=== PATIENT | male | born 1965 | race Caucasian/White ===

== ENCOUNTER 2019-05-23 08:57 | Inpatient (IN) | payer OTHER ==
[2019-05-23 09:58] VITALS: BMI 29.9
--- NOTE | 2019-05-23 10:46 | HP ---
CIWA Score Nausea/Vomitin-No Nausea/No Vomiting Muscle Tremors: 1-None Visible, but [place] Anxiety: 4-Mod. Anxious/Guarded Agitation: 3 Paroxysmal Sweats: 2 Orientation: 0-Oriented Tacttile Disturbances: 0-None Auditory Disturbances: 0-None Visual Disturbances: 0-None Headache: 2-Mild CIWA-Ar Total Score: 12 - Admission Criteria OASAS Guidelines: Admission for Medically Managed Detox: Requires at least one of the followin. CIWA greater than 12 2. Seizures within the past 24 hours 3. Delirium tremens within the past 24 hours 4. Hallucinations within the past 24 hours 5. Acute intervention needed for co occurring medical disorder 6. Acute intervention needed for co occurring psychiatric disorder 7. Severe withdrawal that cannot be handled at a lower level of care (continued vomiting, continued diarrhea, abnormal vital signs) requiring intravenous medication and/or fluids 8. Admission ROS [facility] - [facility] Chief Complaint: ETOH withdrawal symptoms Allergies/Adverse Reactions: Allergies Allergy/AdvReac Type Severity Reaction Status Date / Time Fish Containing Products Allergy Intermediate Rash Verified 01/22/14 16:55 No Known Drug Allergies Allergy Verified 01/22/14 15:03 History of Present Illness: Patient presents with ETOH withdrawal symptoms. Patient is known to [facility] due to previous admissions with last admission in 2013. Patient states he was admitted to detox at [facility] 3-4 weeks ago but relapsed day after discharge. Patient states he started drinking at age 13, drinks all day and night 12-16 oz of beer and 4 locos daily, +binge drinking, eye openers and black outs. Denies hx of seizures, use of cocaine, marijuana and heroin. Patient's last drink was early this morning. PMH includes tobacco use, anxiety and depression. Patient denies SI/HI. Compliant with psych meds which he bought with him. Fluoxetine 20mg daily Buspar 15mg bid Urine tox + bzo RC 0.0 Exam Limitations: No Limitations - Ebola screening Have you traveled outside of the country in the last 21 days: No (N) Have you had contact with anyone from an Ebola affected area: No Have you been sick,other than usual withdrawal symptoms: No Do you have a fever: No - Review of Systems Constitutional: Night Sweats, Changes in sleep EENT: reports: No Symptoms Reported Respiratory: reports: Cough (dry cough) Cardiac: reports: No Symptoms Reported GI: reports: Poor Fluid Intake : reports: Frequency (due to ETOH intake) Musculoskeletal: reports: No Symptoms Reported Integumentary: reports: Flushing, Sweating Neuro: reports: Headache, Tremors Endocrine: reports: [place] Hematology: reports: No Symptoms Reported Psychiatric: reports: Orientated x3, Anxious Patient History - Patient Medical History Hx Anemia: No Hx Asthma: No Hx Chronic Obstructive Pulmonary Disease (COPD): No Hx Cancer: No Hx Cardiac Disorders: No Hx Congestive Heart Failure: No Hx Hypertension: No Hx Hypercholesterolemia: No Hx Pacemaker: No HX Cerebrovascular Accident: No Hx Seizures: No Hx Dementia: No Hx Diabetes: No Hx Gastrointestinal Disorders: No Hx Liver Disease: No Hx Genitourinary Disorders: No Hx Sexually Transmitted Disorders: No Hx Renal Disease (ESRD): No Hx Thyroid Disease: No Hx Human Immunodeficiency Virus (HIV): No (negative 6 months ago.) Hx Hepatitis C: No Hx Depression: Yes Hx Suicide Attempt: No Hx Bipolar Disorder: No Hx Schizophrenia: No Other Medical History: anxiety - Patient Surgical History Past Surgical History: Yes Hx Neurologic Surgery: No Hx Cataract Extraction: No Hx Cardiac Surgery: No Hx Lung Surgery: No Hx Breast Surgery: No Hx Breast Biopsy: No Hx Abdominal Surgery: No Hx Appendectomy: No Hx Cholecystectomy: No Hx Genitourinary Surgery: No Hx Orthopedic Surgery: No Other Surgical History: right lense placement Anesthesia Reaction: No - PPD History Previous Implant?: Yes Documented Results: Negative w/proof Date: 01/24/14 Results: 0 mm PPD to be Administered?: No - Smoking Cessation Smoking history: Current every day smoker Have you smoked in the past 12 months: Yes Aproximately how many cigarettes per day: 25 Cigars Per Day: 0 Hx Chewing Tobacco Use: No Initiated information on smoking cessation: Yes 'Breaking Loose' booklet given: 05/23/19 - Substance & Tx. History Hx Alcohol Use: Yes Hx Substance Use: No Substance Use Type: Alcohol - Substances abused Alcohol Substance route: Oral Frequency: Daily Amount used: 12 (16 OUNCES ) BEER AND, 4 CANS OF LOGOS Age of first use: 14 Date of last use: 05/23/19 Family Disease History - Family Disease History Family Disease History: Other: Father ( [place]) Admission Physical Exam BHS - Vital Signs Vital Signs: Vital Signs - 24 hr 05/23/19 09:52 Temperature 97.3 F L Pulse Rate 97 H Respiratory 18 Rate Blood Pressure 167/92 - Physical General Appearance: Yes: Nourished, Appropriately Dressed, Tremorous, Sweating, Anxious HEENTM: Yes: EOMI, Hearing grossly Normal, Normal ENT Inspection, Normocephalic , Normal Voice, [place], Pharynx Normal Respiratory: Yes: Chest Non-Tender, Lungs Clear, Normal Breath Sounds, No Respiratory Distress, No Accessory Muscle Use Neck: Yes: No masses,lesions,Nodules, Supple, Trachea in good position Breast: Yes: Breast Exam Deferred Cardiology: Yes: Regular Rhythm, Regular Rate, S1, S2, Edema (trace pedal edema) Abdominal: Yes: Normal Bowel Sounds, Non Tender, Soft Genitourinary: Yes: Frequency Back: Yes: Normal Inspection Musculoskeletal: Yes: full range of Motion, Gait Steady Extremities: Yes: Normal Inspection, Normal Range of Motion, Non-Tender, Tremors Neurological: Yes: director of recreation therapy II-XII NML intact, Fully Oriented, Alert, Motor Strength 5/5, Normal Response, Other (anxious) Integumentary: Yes: Warm, Erythema, Moist Lymphatic: Yes: Within Normal Limits - Diagnostic (1) Alcohol dependence with uncomplicated withdrawal Current Visit: Yes Status: Acute (2) Anxiety Current Visit: Yes Status: Chronic (3) Nicotine dependence Current Visit: No Status: Chronic Cleared for Admission [facility] - Detox or Rehab [facility] Level of Care: Medically Managed Detox Regimen/Protocol: Librium Breathalyzer - Breathalyzer Breathalyzer: 0 Urine Drug Screen - Results Drug screen NEGATIVE: No Urine drug screen results: BZO-Benzodiazepines Inpatient Rehab Admission - Rehab Decision to Admit Inpatient rehab admission?: No
[2019-05-23] MEDS ORDERED: NICOTINE POLACRILEX 2 MG GUM BUC PRN (10:51)
[2019-05-23] MEDS ORDERED: guaiFENesin 200 MG/10 ML 10 ML UNIT-DOSE CUPS PO PRN (10:51)
[2019-05-23] MEDS ORDERED: IBUPROFEN 400 MG TABLET (FP) PO PRN (10:51)
[2019-05-23] MEDS ORDERED: MAGNESIUM CITRATE 300 ML BOTTLE PO PRN (10:51)
[2019-05-23] MEDS ORDERED: hydrOXYzine PAMOATE 25 MG CAPSULE (FP) PO PRN (10:51)
[2019-05-23] MEDS ORDERED: ONDANSETRON *ODT* 4 MG TABLET SL PRN (10:51)
[2019-05-23] MEDS ORDERED: MENTHOL/PHENOL 1 EACH UD MM PRN (10:51)
[2019-05-23] MEDS ORDERED: BISMUTH SUBSALICYLATE 262 MG/15 ML BTL PO PRN (10:51)
[2019-05-23] MEDS ORDERED: ACETAMINOPHEN 325 MG TABLET (FP) PO PRN ×2 (10:51)
[2019-05-23] MEDS ORDERED: MAGNESIUM HYDROX 2400MG/30ML ORAL SUSPENSION 30 ML CUP PO PRN (10:51)
[2019-05-23] MEDS ORDERED: chlordiazePOXIDE HCL 25 MG CAPSULE PO PRN (10:55)
--- NOTE | 2019-05-23 11:47 | EKG ---
Test Reason : Blood Pressure : / mmHG Vent. Rate : 089 BPM Atrial Rate : 089 BPM P-R Int : 136 ms QRS Dur : 096 ms QT Int : 354 ms P-R-T Axes : 000 068 027 degrees QTc Int : 430 ms NORMAL SINUS RHYTHM NORMAL ECG NO PREVIOUS ECGS AVAILABLE Confirmed by JOSSE HEAD MD ([id number]) on 05/23/2019 11:46:38 AM Referred By: Confirmed By:JOSSE HEAD MD
[2019-05-23] MEDS: chlordiazePOXIDE HCL 25 MG CAPSULE PO SCH ×3 (12:23→22:11)
[2019-05-23] MEDS: BUSPIRONE HCL 10 MG, BUSPIRONE HCL 5 MG PO SCH ×2 (14:34→22:12)
[2019-05-23 14:52] LABS: HEMATOCRIT 40.1 % (35.4-49); HEMOGLOBIN 13.6 GM/dL (11.7-16.9); MCH 31.5 pg (25.7-33.7); MCHC 33.9 g/dl (32.0-35.9); MEAN PLT VOLUME 8.3 fl (7.5-11.1); PLATELET COUNT 229 K/MM3 (134-434); RBC 4.32 M/mm3 (4.00-5.60); RDW 16.7 % (11.9-15.9); WHITE BLOOD COUNT 9.3 K/mm3 (4.0-10.0)
[2019-05-23 15:09] LABS: ALBUMIN 3.4 g/dl (3.4-5.0); BILIRUBIN,TOTAL 0.4 mg/dL (0.2-1); BLOOD UREA NITROGEN 9.4 mg/dL (7-18); CALCIUM 9.2 mg/dL (8.5-10.1); CREATININE 0.9 mg/dL (0.55-1.3); POTASSIUM 4.2 mmol/L (3.5-5.1); TOT PROT 7.6 g/dl (6.4-8.2)
[2019-05-23] MEDS: THIAMINE HCL 100 MG TABLET (FP) PO SCH (22:12)
[2019-05-24] MEDS: chlordiazePOXIDE HCL 25 MG CAPSULE PO SCH ×4 (05:11→21:59)
[2019-05-24] MEDS: NICOTINE 21 MG/24 HOURS TOPICAL PATCH TD SCH (10:37)
[2019-05-24] MEDS: PRENATAL VITAMINS W/ FOLIC ACID TABLET (FP) PO SCH (10:38)
[2019-05-24] MEDS: FLUoxetine HCL 20 MG CAPSULE (FP) PO SCH (10:38)
[2019-05-24] MEDS: BUSPIRONE HCL 10 MG, BUSPIRONE HCL 5 MG PO SCH ×2 (10:40→22:00)
--- NOTE | 2019-05-24 15:33 | PN ---
S CIWA - CIWA Score Nausea/Vomitin-No Nausea/No Vomiting Muscle Tremors: 2 Anxiety: 4-Mod. Anxious/Guarded Agitation: 2 Paroxysmal Sweats: 3 (And Alternating Hot / Cold Sesnsations.) Orientation: 0-Oriented Tacttile Disturbances: 0-None Auditory Disturbances: 0-None Visual Disturbances: 2-Mild Sensitivity Headache: 0-None Present CIWA-Ar Total Score: 13 BHS Progress Note (SOAP) Subjective: Anxious, Fatigue, Sweating, Tremors, Alternating Hot / Cold Sensations. Objective: PATIENT A & O X 3. IN NO ACUTE DISTRESS. 05/24/19 15:33 Vital Signs Temperature 98.8 F 05/24/19 13:05 Pulse Rate 89 05/24/19 13:05 Respiratory Rate 18 05/24/19 13:05 Blood Pressure 115/65 05/24/19 13:05 O2 Sat by Pulse Oximetry (%) Laboratory Tests 05/23/19 05/23/19 05/23/19 10:50 10:50 10:50 WBC 9.3 RBC 4.32 Hgb 13.6 Hct 40.1 MCV 93.0 MCH 31.5 MCHC 33.9 RDW 16.7 H Plt Count 229 D MPV 8.3 Sodium 141 Potassium 4.2 Chloride 106 Carbon Dioxide 27 Anion Gap 8 BUN 9.4 Creatinine 0.9 Est GFR (CKD-EPI)AfAm 110.27 Est GFR (CKD-EPI)NonAf 95.14 Random Glucose 99 Calcium 9.2 Total Bilirubin 0.4 AST 12 L ALT 19 Alkaline Phosphatase 120 H Total Protein 7.6 Albumin 3.4 RPR Titer Nonreactive LABS NOTED. RESULTS OF DETOX ADMISSION QFT /TB TEST PENDING. 05/24/19 15:34 Assessment: 05/24/19 15:34 WITHDRAWAL SYMPTOMS. Plan: CONTINUE DETOX.
[2019-05-24] MEDS: THIAMINE HCL 100 MG TABLET (FP) PO SCH (21:58)
[2019-05-24] MEDS: MELATONIN 5 MG TABLETS PO PRN (22:01)
[2019-05-25] MEDS: chlordiazePOXIDE HCL 25 MG CAPSULE PO SCH ×4 (05:21→22:02)
[2019-05-25] MEDS: NICOTINE 21 MG/24 HOURS TOPICAL PATCH TD SCH (10:29)
[2019-05-25] MEDS: FLUoxetine HCL 20 MG CAPSULE (FP) PO SCH (10:29)
[2019-05-25] MEDS: BUSPIRONE HCL 10 MG, BUSPIRONE HCL 5 MG PO SCH ×2 (10:29→22:02)
[2019-05-25] MEDS: PRENATAL VITAMINS W/ FOLIC ACID TABLET (FP) PO SCH (10:29)
[2019-05-25] MEDS: MAG HYDROX/AL HYDROX/SIMETH 30 ML UNIT-DOSE CUP PO PRN (10:31)
--- NOTE | 2019-05-25 12:50 | PN ---
[facility] CIWA - CIWA Score Nausea/Vomitin-No Nausea/No Vomiting Muscle Tremors: 3 Anxiety: 3 Agitation: 2 Paroxysmal Sweats: 2 Orientation: 0-Oriented Tacttile Disturbances: 1-Very Mild Itch/Numbness Auditory Disturbances: 0-None Visual Disturbances: 1-Very Mild Sensitivity Headache: 0-None Present CIWA-Ar Total Score: 12 S Progress Note (SOAP) Subjective: 54 years old male admitted on 05/23/19 for acute alcohol withdrawal sx management doing well with librium detox regimen feeling better ambulating on hallway tolerate food and fluid well social with peer in day room Objective: 05/25/19 12:49 Vital Signs Temperature 96.1 F L 05/25/19 09:14 Pulse Rate 97 H 05/25/19 09:14 Respiratory Rate 18 05/25/19 09:14 Blood Pressure 116/87 05/25/19 09:14 O2 Sat by Pulse Oximetry (%) Laboratory Last Values WBC 9.3 K/mm3 (4.0-10.0) 05/23/19 10:50 RBC 4.32 M/mm3 (4.00-5.60) 05/23/19 10:50 Hgb 13.6 GM/dL (11.7-16.9) 05/23/19 10:50 Hct 40.1 % (35.4-49) 05/23/19 10:50 MCV 93.0 fl (80-96) 05/23/19 10:50 MCH 31.5 pg (25.7-33.7) 05/23/19 10:50 MCHC 33.9 g/dl (32.0-35.9) 05/23/19 10:50 RDW 16.7 % (11.9-15.9) H 05/23/19 10:50 Plt Count 229 K/MM3 (134-434) D 05/23/19 10:50 MPV 8.3 fl (7.5-11.1) 05/23/19 10:50 Sodium 141 mmol/L (136-145) 05/23/19 10:50 Potassium 4.2 mmol/L (3.5-5.1) 05/23/19 10:50 Chloride 106 mmol/L (98-107) 05/23/19 10:50 Carbon Dioxide 27 mmol/L (21-32) 05/23/19 10:50 Anion Gap 8 MMOL/L (8-16) 05/23/19 10:50 BUN 9.4 mg/dL (7-18) 05/23/19 10:50 Creatinine 0.9 mg/dL (0.55-1.3) 05/23/19 10:50 Est GFR (CKD-EPI)AfAm 110.27 05/23/19 10:50 Est GFR (CKD-EPI)NonAf 95.14 05/23/19 10:50 Random Glucose 99 mg/dL (74-106) 05/23/19 10:50 Calcium 9.2 mg/dL (8.5-10.1) 05/23/19 10:50 Total Bilirubin 0.4 mg/dL (0.2-1) 05/23/19 10:50 AST 12 U/L (15-37) L 05/23/19 10:50 ALT 19 U/L (13-61) 05/23/19 10:50 Alkaline Phosphatase 120 U/L (45-117) H 05/23/19 10:50 Total Protein 7.6 g/dl (6.4-8.2) 05/23/19 10:50 Albumin 3.4 g/dl (3.4-5.0) 05/23/19 10:50 RPR Titer Nonreactive (NONREACTIVE) 05/23/19 10:50 lab noted Assessment: 05/25/19 12:50 alcohol withdrawal sx Plan: continue lirium detox regimen
[2019-05-25] MEDS: HYDROCORTISONE 1% TOPICAL CREAM 30 GM TUBE TP SCH ×2 (18:34→22:02)
[2019-05-25] MEDS: MELATONIN 5 MG TABLETS PO PRN (22:02)
[2019-05-25] MEDS: THIAMINE HCL 100 MG TABLET (FP) PO SCH (22:02)
[2019-05-26] MEDS ORDERED: chlordiazePOXIDE HCL 10 MG CAPSULE PO PRN
[2019-05-26] MEDS: chlordiazePOXIDE HCL 10 MG CAPSULE PO SCH ×4 (05:16→22:13)
[2019-05-26] MEDS: PRENATAL VITAMINS W/ FOLIC ACID TABLET (FP) PO SCH (10:16)
[2019-05-26] MEDS: BUSPIRONE HCL 10 MG, BUSPIRONE HCL 5 MG PO SCH ×2 (10:16→22:14)
[2019-05-26] MEDS: FLUoxetine HCL 20 MG CAPSULE (FP) PO SCH (10:16)
[2019-05-26] MEDS: NICOTINE 21 MG/24 HOURS TOPICAL PATCH TD SCH (10:17)
[2019-05-26] MEDS: HYDROCORTISONE 1% TOPICAL CREAM 30 GM TUBE TP SCH ×4 (10:17→22:14)
--- NOTE | 2019-05-26 13:47 | PN ---
[facility] CIWA - CIWA Score Nausea/Vomitin-Mild Nausea/No Vomiting Muscle Tremors: 2 Anxiety: 1-Mildly Anxious Agitation: 1-Slight > Activity Paroxysmal Sweats: 1-Minimal Palms Moist Orientation: 0-Oriented Tacttile Disturbances: 0-None Auditory Disturbances: 0-None Visual Disturbances: 0-None Headache: 1-Very Mild CIWA-Ar Total Score: 7 BHS Progress Note (SOAP) Subjective: pt complaints of back pain, says detox is going well. O: Vital Signs - 24 hr 05/25/19 05/25/19 05/26/19 17:44 21:46 00:30 Temperature 96.9 F L 97.5 F L Pulse Rate 86 97 H Respiratory 18 16 18 Rate Blood Pressure 127/84 124/77 05/26/19 05/26/19 05/26/19 03:30 06:19 06:30 Temperature 97.7 F Pulse Rate 76 Respiratory 18 18 18 Rate Blood Pressure 129/75 05/26/19 05/26/19 09:24 13:45 Temperature 98.1 F 97.2 F L Pulse Rate 88 79 Respiratory 16 18 Rate Blood Pressure 140/95 124/83 Laboratory Tests 05/23/19 05/23/19 05/23/19 10:50 10:50 10:50 WBC 9.3 RBC 4.32 Hgb 13.6 Hct 40.1 MCV 93.0 MCH 31.5 MCHC 33.9 RDW 16.7 H Plt Count 229 D MPV 8.3 Sodium 141 Potassium 4.2 Chloride 106 Carbon Dioxide 27 Anion Gap 8 BUN 9.4 Creatinine 0.9 Est GFR (CKD-EPI)AfAm 110.27 Est GFR (CKD-EPI)NonAf 95.14 Random Glucose 99 Calcium 9.2 Total Bilirubin 0.4 AST 12 L ALT 19 Alkaline Phosphatase 120 H Total Protein 7.6 Albumin 3.4 RPR Titer Nonreactive a/p: continue alcohol detox protocol prn meds for back pain
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
[2019-05-26] MEDS: traZODone HCL 50 MG TABLET (FP) PO PRN (22:13)
[2019-05-26] MEDS: THIAMINE HCL 100 MG TABLET (FP) PO SCH (22:13)
[2019-05-26] MEDS: CLOTRIMAZOLE 1% CREAM 15 GM TUBE TP SCH (22:14)
[2019-05-27] MEDS: chlordiazePOXIDE HCL 10 MG CAPSULE PO SCH ×2 (06:16→16:59)
[2019-05-27] MEDS: FLUoxetine HCL 20 MG CAPSULE (FP) PO SCH (10:17)
[2019-05-27] MEDS: NICOTINE 21 MG/24 HOURS TOPICAL PATCH TD SCH (10:17)
[2019-05-27] MEDS: PRENATAL VITAMINS W/ FOLIC ACID TABLET (FP) PO SCH (10:17)
[2019-05-27] MEDS: HYDROCORTISONE 1% TOPICAL CREAM 30 GM TUBE TP SCH ×4 (10:17→21:42)
[2019-05-27] MEDS: CLOTRIMAZOLE 1% CREAM 15 GM TUBE TP SCH ×2 (10:18→21:42)
[2019-05-27] MEDS: BUSPIRONE HCL 10 MG, BUSPIRONE HCL 5 MG PO SCH ×2 (10:18→22:01)
--- NOTE | 2019-05-27 13:53 | PN ---
S CIWA - CIWA Score Nausea/Vomitin Muscle Tremors: 2 Anxiety: 2 Agitation: 2 Paroxysmal Sweats: 1-Minimal Palms Moist Orientation: 0-Oriented Tacttile Disturbances: 0-None Auditory Disturbances: 0-None Visual Disturbances: 0-None Headache: 2-Mild CIWA-Ar Total Score: 11 S Progress Note (SOAP) Subjective: alert,irritable,anxious,interrupted sleep, Objective: 05/27/19 13:52 Vital Signs Temperature 97.7 F 05/27/19 13:12 Pulse Rate 83 05/27/19 13:12 Respiratory Rate 18 05/27/19 13:12 Blood Pressure 128/86 05/27/19 13:12 O2 Sat by Pulse Oximetry (%) Assessment: 05/27/19 13:52 withdrawal symptom Plan: continue detox librium regimen,discharge in am
[2019-05-27] MEDS: MAG HYDROX/AL HYDROX/SIMETH 30 ML UNIT-DOSE CUP PO PRN (17:00)
[2019-05-27] MEDS: traZODone HCL 50 MG TABLET (FP) PO PRN (21:40)
[2019-05-27] MEDS: THIAMINE HCL 100 MG TABLET (FP) PO SCH (21:40)
[2019-05-27 23:12] LABS: URINE APPEARANCE CLEAR; URINE BILIRUBIN NEGATIVE (NEGATIVE); URINE COLOR YELLOW; URINE GLUCOSE (UA) NEGATIVE (NEGATIVE); URINE KETONE NEGATIVE (NEGATIVE); URINE LEUK ESTERASE NEGATIVE (NEGATIVE); URINE NITRITE NEGATIVE (NEGATIVE); URINE PROTEIN NEGATIVE (NEGATIVE); URINE UROBILINOGEN 0.2 mg/dL (0.2-1.0)
[2019-05-28] MEDS ORDERED: chlordiazePOXIDE HCL 10 MG CAPSULE PO ONE (05:00)
[2019-05-28 06:22] VITALS: BP 133/85; PULSE 77; TEMP 97.6
[2019-05-28] MEDS: CLOTRIMAZOLE 1% CREAM 15 GM TUBE TP SCH (09:29)
[2019-05-28] MEDS: HYDROCORTISONE 1% TOPICAL CREAM 30 GM TUBE TP SCH (09:29)
[2019-05-28] MEDS: NICOTINE 21 MG/24 HOURS TOPICAL PATCH TD SCH (09:29)
[2019-05-28] MEDS: PRENATAL VITAMINS W/ FOLIC ACID TABLET (FP) PO SCH (09:30)
[2019-05-28] MEDS: FLUoxetine HCL 20 MG CAPSULE (FP) PO SCH (09:30)
--- NOTE | 2019-05-28 13:44 | DS ---
[facility] Detox Discharge Summary Admission Date: 05/23/19 Discharge Date: 05/28/19 - History Present History: Alcohol Dependence Additional Comments: 54 years old male first patient [facility] admission since 2013 was admitted on 05/23/19 for alcohol withdrawal sx management did well with libirum detox regimen no complication through out the detox stay seen by psychiatrist meghan garcia patient tolerate well patient is alert oriented x 3 speech clearly denies headache no chest pain no wheezing denies dizziness no nausea no vomiting - Physical Exam Results Vital Signs: Vital Signs Temperature 97.6 F 05/28/19 06:22 Pulse Rate 77 05/28/19 06:22 Respiratory Rate 18 05/28/19 06:22 Blood Pressure 133/85 05/28/19 06:22 O2 Sat by Pulse Oximetry (%) Pertinent Admission Physical Exam Findings: alcohol withdrawal sx Laboratory Last Values WBC 9.3 K/mm3 (4.0-10.0) 05/23/19 10:50 RBC 4.32 M/mm3 (4.00-5.60) 05/23/19 10:50 Hgb 13.6 GM/dL (11.7-16.9) 05/23/19 10:50 Hct 40.1 % (35.4-49) 05/23/19 10:50 MCV 93.0 fl (80-96) 05/23/19 10:50 MCH 31.5 pg (25.7-33.7) 05/23/19 10:50 MCHC 33.9 g/dl (32.0-35.9) 05/23/19 10:50 RDW 16.7 % (11.9-15.9) H 05/23/19 10:50 Plt Count 229 K/MM3 (134-434) D 05/23/19 10:50 MPV 8.3 fl (7.5-11.1) 05/23/19 10:50 Sodium 141 mmol/L (136-145) 05/23/19 10:50 Potassium 4.2 mmol/L (3.5-5.1) 05/23/19 10:50 Chloride 106 mmol/L (98-107) 05/23/19 10:50 Carbon Dioxide 27 mmol/L (21-32) 05/23/19 10:50 Anion Gap 8 MMOL/L (8-16) 05/23/19 10:50 BUN 9.4 mg/dL (7-18) 05/23/19 10:50 Creatinine 0.9 mg/dL (0.55-1.3) 05/23/19 10:50 Est GFR (CKD-EPI)AfAm 110.27 05/23/19 10:50 Est GFR (CKD-EPI)NonAf 95.14 05/23/19 10:50 Random Glucose 99 mg/dL (74-106) 05/23/19 10:50 Calcium 9.2 mg/dL (8.5-10.1) 05/23/19 10:50 Total Bilirubin 0.4 mg/dL (0.2-1) 05/23/19 10:50 AST 12 U/L (15-37) L 05/23/19 10:50 ALT 19 U/L (13-61) 05/23/19 10:50 Alkaline Phosphatase 120 U/L (45-117) H 05/23/19 10:50 Total Protein 7.6 g/dl (6.4-8.2) 05/23/19 10:50 Albumin 3.4 g/dl (3.4-5.0) 05/23/19 10:50 Urine Color Yellow 05/27/19 21:20 Urine Appearance Clear 05/27/19 21:20 Urine pH 6.0 (5.0-8.0) D 05/27/19 21:20 Ur Specific [place] 1.023 (1.010-1.035) 05/27/19 21:20 Urine Protein Negative (NEGATIVE) 05/27/19 21:20 Urine Glucose (UA) Negative (NEGATIVE) 05/27/19 21:20 Urine Ketones Negative (NEGATIVE) 05/27/19 21:20 Urine Blood Negative (NEGATIVE) 05/27/19 21:20 Urine Nitrite Negative (NEGATIVE) 05/27/19 21:20 Urine Bilirubin Negative (NEGATIVE) 05/27/19 21:20 Urine Urobilinogen 0.2 mg/dL (0.2-1.0) 05/27/19 21:20 Ur Leukocyte Esterase Negative (NEGATIVE) 05/27/19 21:20 RPR Titer Nonreactive (NONREACTIVE) 05/23/19 10:50 TB (QFT) Incubation (.) 05/23/19 11:00 TB Test (QFT) Nil 0.05 IU/mL (.) 05/23/19 11:00 TB Test (QFT) Mitogen >10.00 IU/mL (.) 05/23/19 11:00 TB Test (QFT) Antigen 0.09 IU/mL (.) 05/23/19 11:00 TB Test (QFT) Negative (Negative) 05/23/19 11:00 TB Positive Criteria (.) 05/23/19 11:00 lab noted - Treatment Hospital Course: Detox Protocol Followed, Detoxed Safely, Responded well, Discharged Condition Good, Rehab Referral Accepted Patient has Accepted a Rehab Referral to: community support approach - Medication Discharge Medications: Ambulatory Orders Buspirone HCl 15 mg PO Q12H 05/23/19 Fluoxetine HCl 20 mg PO DAILY 05/23/19 - Diagnosis (1) Alcohol dependence with uncomplicated withdrawal Status: Acute (2) Nicotine dependence Status: Acute - AMA Did Patient Leave Against Medical Advice: No
== END 2019-05-28 09:16 | disposition home or self-care (01) | DRG 775 ==
LOC: YASAS 08:57 → Y3N 11:11
PROVIDERS: ADMIT Surgery; ATTEND Surgery
PROC: HZ2ZZZZ Detoxification Services for Substance Abuse Treatment (ICD-10-PCS; principal; 2019-05-23)
DX: F10.230 Alcohol dependence with withdrawal, uncomplicated (principal); F10.24 Alcohol dependence with alcohol-induced mood disorder; F17.210 Nicotine dependence, cigarettes, uncomplicated; F32.9 Major depressive disorder, single episode, unspecified; F31.9 Bipolar disorder, unspecified
CPT/HCPCS: 36415; 80053; 81003; 85027; 86480; 86593; 93005; 93010

== ENCOUNTER 2019-07-11 08:10 | Inpatient (IN) | payer OTHER ==
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
[2019-07-11] MEDS ORDERED: MENTHOL/PHENOL 1 EACH UD MM PRN (09:07)
[2019-07-11] MEDS ORDERED: IBUPROFEN 400 MG TABLET (FP) PO PRN (09:07)
[2019-07-11] MEDS ORDERED: BISMUTH SUBSALICYLATE 524 MG/30 ML UD PO PRN (09:07)
[2019-07-11] MEDS ORDERED: MAGNESIUM HYDROX 2400MG/30ML ORAL SUSPENSION 30 ML CUP PO PRN (09:07)
[2019-07-11] MEDS ORDERED: MAG HYDROX/AL HYDROX/SIMETH 30 ML UNIT-DOSE CUP PO PRN (09:07)
[2019-07-11] MEDS ORDERED: MAGNESIUM CITRATE 300 ML BOTTLE PO PRN (09:07)
[2019-07-11] MEDS ORDERED: hydrOXYzine PAMOATE 25 MG CAPSULE (FP) PO PRN (09:07)
[2019-07-11] MEDS ORDERED: ACETAMINOPHEN 325 MG TABLET (FP) PO PRN ×2 (09:07)
[2019-07-11] MEDS ORDERED: chlordiazePOXIDE HCL 25 MG CAPSULE PO PRN (09:08)
[2019-07-11] MEDS: chlordiazePOXIDE HCL 25 MG CAPSULE PO SCH ×3 (10:46→22:14)
[2019-07-11] MEDS: PRENATAL VITAMINS W/ FOLIC ACID TABLET (FP) PO SCH (10:46)
[2019-07-11] MEDS: THIAMINE HCL 100 MG TABLET (FP) PO SCH (22:14)
[2019-07-11] MEDS: MELATONIN 5 MG TABLETS PO PRN (22:14)
[2019-07-12] MEDS: chlordiazePOXIDE HCL 25 MG CAPSULE PO SCH ×4 (06:11→22:21)
[2019-07-12 10:06] LABS: HEMATOCRIT 44.4 % (35.4-49); HEMOGLOBIN 14.8 GM/dL (11.7-16.9); MCH 31.8 pg (25.7-33.7); MCHC 33.3 g/dl (32.0-35.9); MEAN CELL VOLUME 95.4 fl (80-96); MEAN PLT VOLUME 8.2 fl (7.5-11.1); PLATELET COUNT 158 K/MM3 (134-434); RBC 4.65 M/mm3 (4.00-5.60); RDW 16.9 % (11.9-15.9); WHITE BLOOD COUNT 5.6 K/mm3 (4.0-10.0)
[2019-07-12 10:14] LABS: BILIRUBIN,TOTAL 0.4 mg/dL (0.2-1); BLOOD UREA NITROGEN 8.8 mg/dL (7-18); CALCIUM 8.7 mg/dL (8.5-10.1); CREATININE 0.9 mg/dL (0.55-1.3); POTASSIUM 3.6 mmol/L (3.5-5.1); TOT PROT 6.5 g/dl (6.4-8.2)
[2019-07-12] MEDS: PRENATAL VITAMINS W/ FOLIC ACID TABLET (FP) PO SCH (10:29)
--- NOTE | 2019-07-12 11:26 | PN ---
S CIWA - CIWA Score Nausea/Vomitin-No Nausea/No Vomiting Muscle Tremors: 2 Anxiety: 3 Agitation: 0-Normal Activity Paroxysmal Sweats: 3 Orientation: 0-Oriented Tacttile Disturbances: 0-None Auditory Disturbances: 0-None Visual Disturbances: 0-None Headache: 2-Mild CIWA-Ar Total Score: 10 BHS Progress Note (SOAP) Subjective: c/o headache, sweats, shakes, and anxiety. Objective: 07/12/19 11:25 Vital Signs 07/12/19 07/12/19 07/12/19 03:30 06:43 09:35 Temperature 97 F L 97.1 F L Pulse Rate 70 82 Respiratory 18 18 18 Rate Blood Pressure 129/81 133/78 Lab Results WBC 5.6 K/mm3 (4.0-10.0) 07/12/19 08:00 RBC 4.65 M/mm3 (4.00-5.60) 07/12/19 08:00 Hgb 14.8 GM/dL (11.7-16.9) 07/12/19 08:00 Hct 44.4 % (35.4-49) 07/12/19 08:00 MCV 95.4 fl (80-96) 07/12/19 08:00 MCHC 33.3 g/dl (32.0-35.9) 07/12/19 08:00 RDW 16.9 % (11.9-15.9) H 07/12/19 08:00 Plt Count 158 K/MM3 (134-434) D 07/12/19 08:00 Sodium 142 mmol/L (136-145) 07/12/19 08:00 Potassium 3.6 mmol/L (3.5-5.1) 07/12/19 08:00 Chloride 110 mmol/L (98-107) H 07/12/19 08:00 Carbon Dioxide 28 mmol/L (21-32) 07/12/19 08:00 Anion Gap 4 MMOL/L (8-16) L 07/12/19 08:00 BUN 8.8 mg/dL (7-18) 07/12/19 08:00 Creatinine 0.9 mg/dL (0.55-1.3) 07/12/19 08:00 Random Glucose 85 mg/dL (74-106) 07/12/19 08:00 Calcium 8.7 mg/dL (8.5-10.1) 07/12/19 08:00 Labs noted. Assessment: 07/12/19 11:25 AOX3, in no acute respiratory distress. Full ROM, ambulating in the unit. Withdrawal symptoms. Plan: continue detox.
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
[2019-07-12] MEDS: THIAMINE HCL 100 MG TABLET (FP) PO SCH (22:21)
[2019-07-12] MEDS: busPIRone HCL 10 MG TABLET (FP) PO SCH (22:22)
[2019-07-13] MEDS: chlordiazePOXIDE HCL 25 MG CAPSULE PO SCH ×4 (06:09→22:01)
[2019-07-13] MEDS: busPIRone HCL 10 MG TABLET (FP) PO SCH ×2 (10:30→22:02)
[2019-07-13] MEDS: PRENATAL VITAMINS W/ FOLIC ACID TABLET (FP) PO SCH (10:31)
[2019-07-13] MEDS: FLUoxetine HCL 20 MG CAPSULE (FP) PO SCH (10:31)
--- NOTE | 2019-07-13 10:33 | PN ---
S CIWA - CIWA Score Nausea/Vomitin-No Nausea/No Vomiting Muscle Tremors: None Anxiety: 2 Agitation: 0-Normal Activity Paroxysmal Sweats: 3 Orientation: 0-Oriented Tacttile Disturbances: 0-None Auditory Disturbances: 0-None Visual Disturbances: 0-None Headache: 1-Very Mild CIWA-Ar Total Score: 6 BHS Progress Note (SOAP) Subjective: c/o anxiety, sweats, and mild headache. Objective: 07/13/19 10:34 Vital Signs 07/13/19 07/13/19 07/13/19 03:30 06:23 09:22 Temperature 98.2 F 97.2 F L Pulse Rate 71 95 H Respiratory 18 18 18 Rate Blood Pressure 128/81 148/105 H Lab Results WBC 5.6 K/mm3 (4.0-10.0) 07/12/19 08:00 RBC 4.65 M/mm3 (4.00-5.60) 07/12/19 08:00 Hgb 14.8 GM/dL (11.7-16.9) 07/12/19 08:00 Hct 44.4 % (35.4-49) 07/12/19 08:00 MCV 95.4 fl (80-96) 07/12/19 08:00 MCHC 33.3 g/dl (32.0-35.9) 07/12/19 08:00 RDW 16.9 % (11.9-15.9) H 07/12/19 08:00 Plt Count 158 K/MM3 (134-434) D 07/12/19 08:00 Sodium 142 mmol/L (136-145) 07/12/19 08:00 Potassium 3.6 mmol/L (3.5-5.1) 07/12/19 08:00 Chloride 110 mmol/L (98-107) H 07/12/19 08:00 Carbon Dioxide 28 mmol/L (21-32) 07/12/19 08:00 Anion Gap 4 MMOL/L (8-16) L 07/12/19 08:00 BUN 8.8 mg/dL (7-18) 07/12/19 08:00 Creatinine 0.9 mg/dL (0.55-1.3) 07/12/19 08:00 Random Glucose 85 mg/dL (74-106) 07/12/19 08:00 Calcium 8.7 mg/dL (8.5-10.1) 07/12/19 08:00 Labs noted. Assessment: 07/13/19 10:35 AOX3, in no respiratory distress. Full ROM, ambulating in the unit. Withdrawal symptoms. Plan: continue detox.
[2019-07-13] MEDS: THIAMINE HCL 100 MG TABLET (FP) PO SCH (22:01)
[2019-07-13] MEDS: MELATONIN 5 MG TABLETS PO PRN (22:02)
[2019-07-14] MEDS ORDERED: chlordiazePOXIDE HCL 10 MG CAPSULE PO PRN
[2019-07-14] MEDS: chlordiazePOXIDE HCL 10 MG CAPSULE PO SCH ×4 (06:18→22:12)
[2019-07-14] MEDS: PRENATAL VITAMINS W/ FOLIC ACID TABLET (FP) PO SCH (10:26)
[2019-07-14] MEDS: FLUoxetine HCL 20 MG CAPSULE (FP) PO SCH (10:26)
--- NOTE | 2019-07-14 16:20 | PN ---
S CIWA - CIWA Score Nausea/Vomitin-No Nausea/No Vomiting Muscle Tremors: None Anxiety: 3 Agitation: 3 Paroxysmal Sweats: 3 Orientation: 0-Oriented Tacttile Disturbances: 0-None Auditory Disturbances: 0-None Visual Disturbances: 0-None Headache: 1-Very Mild CIWA-Ar Total Score: 10 S Progress Note (SOAP) Subjective: Anxious, Restless, Sweating. Objective: PATIENT A & O X 3, OBSERVED AMBULATING ON DETOX UNIT UNASSISTED. IN NO ACUTE DISTRESS. 07/14/19 16:19 Vital Signs Temperature 98.9 F 07/14/19 13:10 Pulse Rate 81 07/14/19 13:10 Respiratory Rate 18 07/14/19 13:10 Blood Pressure 126/82 07/14/19 13:10 O2 Sat by Pulse Oximetry (%) Laboratory Tests 07/12/19 07/12/19 07/12/19 08:00 08:00 08:00 WBC 5.6 RBC 4.65 Hgb 14.8 Hct 44.4 MCV 95.4 MCH 31.8 MCHC 33.3 RDW 16.9 H Plt Count 158 D MPV 8.2 Sodium 142 Potassium 3.6 Chloride 110 H Carbon Dioxide 28 Anion Gap 4 L BUN 8.8 Creatinine 0.9 Est GFR (CKD-EPI)AfAm 110.27 Est GFR (CKD-EPI)NonAf 95.14 Random Glucose 85 Calcium 8.7 Total Bilirubin 0.4 AST 19 ALT 23 Alkaline Phosphatase 95 Total Protein 6.5 Albumin 3.0 L RPR Titer Nonreactive LABS NOTED. Assessment: 07/14/19 16:19 WITHDRAWAL SYMPTOMS. Plan: CONTINUE DETOX.
[2019-07-14] MEDS: CLOTRIMAZOLE 1% CREAM 15 GM TUBE TP SCH (21:20)
[2019-07-14] MEDS: BACITRACIN/POLYMYXIN B SULFATE 15 GM TUBE TP SCH (21:21)
[2019-07-14] MEDS: THIAMINE HCL 100 MG TABLET (FP) PO SCH (21:21)
[2019-07-15] MEDS: chlordiazePOXIDE HCL 10 MG CAPSULE PO SCH ×2 (06:11→16:43)
[2019-07-15] MEDS: FLUoxetine HCL 20 MG CAPSULE (FP) PO SCH (10:38)
[2019-07-15] MEDS: PRENATAL VITAMINS W/ FOLIC ACID TABLET (FP) PO SCH (10:38)
[2019-07-15] MEDS: CLOTRIMAZOLE 1% CREAM 15 GM TUBE TP SCH ×2 (10:38→22:02)
[2019-07-15] MEDS: BACITRACIN/POLYMYXIN B SULFATE 15 GM TUBE TP SCH ×2 (10:40→22:04)
--- NOTE | 2019-07-15 15:13 | PN ---
S CIWA - CIWA Score Nausea/Vomitin-No Nausea/No Vomiting Muscle Tremors: None Anxiety: 3 Agitation: 3 Paroxysmal Sweats: No Perspiration Orientation: 0-Oriented Tacttile Disturbances: 2-Mild Itch/Numbness/Burn Auditory Disturbances: 0-None Visual Disturbances: 0-None Headache: 0-None Present CIWA-Ar Total Score: 8 BHS Progress Note (SOAP) Subjective: Anxious, Restless, Sweating. Objective: PATIENT A & O X 3, OBSERVED AMBULATING ON DETOX UNIT UNASSISTED. IN NO ACUTE DISTRESS. 07/15/19 15:14 Vital Signs Temperature 96.5 F L 07/15/19 13:39 Pulse Rate 87 07/15/19 13:39 Respiratory Rate 18 07/15/19 13:39 Blood Pressure 135/92 07/15/19 13:39 O2 Sat by Pulse Oximetry (%) Laboratory Tests 07/12/19 07/12/19 07/12/19 08:00 08:00 08:00 WBC 5.6 RBC 4.65 Hgb 14.8 Hct 44.4 MCV 95.4 MCH 31.8 MCHC 33.3 RDW 16.9 H Plt Count 158 D MPV 8.2 Sodium 142 Potassium 3.6 Chloride 110 H Carbon Dioxide 28 Anion Gap 4 L BUN 8.8 Creatinine 0.9 Est GFR (CKD-EPI)AfAm 110.27 Est GFR (CKD-EPI)NonAf 95.14 Random Glucose 85 Calcium 8.7 Total Bilirubin 0.4 AST 19 ALT 23 Alkaline Phosphatase 95 Total Protein 6.5 Albumin 3.0 L RPR Titer Nonreactive LABS NOTED. Assessment: 07/15/19 15:14 WITHDRAWAL SYMPTOMS. Plan: CONTINUE DETOX. PATIENT SCHEDULED FOR D/C FROM DETOX UNIT TOMORROW.
[2019-07-15] MEDS: THIAMINE HCL 100 MG TABLET (FP) PO SCH (22:02)
[2019-07-15] MEDS: MELATONIN 5 MG TABLETS PO PRN (22:03)
[2019-07-16] MEDS ORDERED: chlordiazePOXIDE HCL 10 MG CAPSULE PO ONE (05:00)
[2019-07-16 09:20] VITALS: BP 129/80; PULSE 79; TEMP 97
[2019-07-16] MEDS: PRENATAL VITAMINS W/ FOLIC ACID TABLET (FP) PO SCH (09:29)
[2019-07-16] MEDS: FLUoxetine HCL 20 MG CAPSULE (FP) PO SCH (09:29)
[2019-07-16] MEDS: CLOTRIMAZOLE 1% CREAM 15 GM TUBE TP SCH (09:30)
[2019-07-16] MEDS: BACITRACIN/POLYMYXIN B SULFATE 15 GM TUBE TP SCH (09:30)
--- NOTE | 2019-07-16 15:26 | DS ---
[facility] Detox Discharge Summary Admission Date: 07/11/19 Discharge Date: 07/16/19 - History Present History: Alcohol Dependence Additional Comments: PATIENT GOING TO [facility]) FOR AFTERCARE. PATIENT WAS DISCHARGED FROM DETOX UNIT TO BE TAKEN OVER TO REHAB UNIT IN STABLE MEDICAL CONDITION. Pertinent Past History: Nicotine Dependence, History Of Depression, History of Anxiety Disorder, Elevated Blood Pressure Reading (without diagnosis of Hypertension). - Physical Exam Results Vital Signs: Vital Signs Temperature 97.0 F L 07/16/19 09:19 Pulse Rate 79 07/16/19 09:19 Respiratory Rate 18 07/16/19 09:19 Blood Pressure 129/80 07/16/19 09:19 O2 Sat by Pulse Oximetry (%) Pertinent Admission Physical Exam Findings: WITHDRAWAL SYMPTOMS. Laboratory Tests 07/12/19 07/12/19 07/12/19 08:00 08:00 08:00 WBC 5.6 RBC 4.65 Hgb 14.8 Hct 44.4 MCV 95.4 MCH 31.8 MCHC 33.3 RDW 16.9 H Plt Count 158 D MPV 8.2 Sodium 142 Potassium 3.6 Chloride 110 H Carbon Dioxide 28 Anion Gap 4 L BUN 8.8 Creatinine 0.9 Est GFR (CKD-EPI)AfAm 110.27 Est GFR (CKD-EPI)NonAf 95.14 Random Glucose 85 Calcium 8.7 Total Bilirubin 0.4 AST 19 ALT 23 Alkaline Phosphatase 95 Total Protein 6.5 Albumin 3.0 L RPR Titer Nonreactive LABS NOTED. - Treatment Hospital Course: Detox Protocol Followed, Detoxed Safely, Responded well, Discharged Condition Good, Rehab Referral Accepted Patient has Accepted a Rehab Referral to: [facility] ([place], [place]). - Medication Discharge Medications: Ambulatory Orders Buspirone HCl [Buspar -] 15 mg PO BID #60 tablet 07/15/19 Fluoxetine HCl [Prozac] 20 mg PO DAILY 07/16/19 traZODone HCL [Trazodone HCl] 50 mg PO HS PRN 07/16/19 - Diagnosis (1) Alcohol dependence with uncomplicated withdrawal Status: Acute (2) Anxiety disorder Status: Chronic Qualifiers: Anxiety disorder type: unspecified anxiety disorder Qualified Code(s): F41.9 - Anxiety disorder, unspecified (3) History of depression Status: Chronic (4) Nicotine dependence Status: Chronic (5) Elevated blood pressure reading with diagnosis of hypertension Status: Acute - AMA Did Patient Leave Against Medical Advice: No BHS CIWA - CIWA Score Nausea/Vomitin-No Nausea/No Vomiting Muscle Tremors: None Anxiety: 2 Agitation: 1-Slight > Activity Paroxysmal Sweats: No Perspiration Orientation: 0-Oriented Tacttile Disturbances: 0-None Auditory Disturbances: 0-None Visual Disturbances: 0-None Headache: 0-None Present CIWA-Ar Total Score: 3
== END 2019-07-16 12:25 | disposition other institution (70) | DRG 775 ==
LOC: YASAS 08:10 → Y3N 09:13
PROVIDERS: ADMIT Allergy & Immunology; ATTEND Allergy & Immunology
PROC: HZ2ZZZZ Detoxification Services for Substance Abuse Treatment (ICD-10-PCS; principal; 2019-07-11)
DX: F10.230 Alcohol dependence with withdrawal, uncomplicated (principal); F17.210 Nicotine dependence, cigarettes, uncomplicated; F41.9 Anxiety disorder, unspecified; R03.0 Elevated blood-pressure reading, without diagnosis of hypertension; R00.0 Tachycardia, unspecified; Z91.013 Allergy to seafood; Z59.0 Homelessness
CPT/HCPCS: 36415; 80053; 85027; 86593

== ENCOUNTER 2019-07-16 12:41 | Inpatient (IN) | payer OTHER ==
[2019-07-16] MEDS ORDERED: ACETAMINOPHEN 325 MG TABLET (FP) PO PRN (15:31)
[2019-07-16] MEDS ORDERED: MENTHOL/PHENOL 1 EACH UD MM PRN (15:31)
[2019-07-16] MEDS ORDERED: P-EPHED 60MG/TRIPROLIDI 2.5MG TABLET PO PRN (15:31)
[2019-07-16] MEDS ORDERED: guaiFENesin 200 MG/10 ML 10 ML UNIT-DOSE CUPS PO PRN (15:31)
[2019-07-16] MEDS ORDERED: MAGNESIUM HYDROX 2400MG/30ML ORAL SUSPENSION 30 ML CUP PO PRN (15:31)
[2019-07-16] MEDS ORDERED: LOPERAMIDE HCL 2 MG CAPSULE PO PRN (15:31)
[2019-07-16] MEDS ORDERED: MAG HYDROX/AL HYDROX/SIMETH 30 ML UNIT-DOSE CUP PO PRN (15:31)
[2019-07-16] MEDS ORDERED: IBUPROFEN 400 MG TABLET (FP) PO PRN (15:31)
[2019-07-16] MEDS ORDERED: MAGNESIUM CITRATE 300 ML BOTTLE PO PRN (15:31)
--- NOTE | 2019-07-16 15:39 | HP ---
[facility] Rehab Assess/Revision - Admission History Admitted to Rehab from: [facility] Date of Admission to Rehab: 07/16/2019 - Vital signs Vital Signs: Vital Signs Period Temp Pulse Resp BP Sys/Braun Pulse Ox Last 24 Hr 98.2 F 91 18 129/82 - Findings Detox History & Physical reviewed: Yes Concur with findings: Yes Comments/Additional Findings: PATIENT'S MEDICAL / MEDICATION HISTORY REVIEWED PRIOR TO DISCHARGE FROM DETOX UNIT. PATIENT WAS DISCHARGED FROM DETOX UNIT TO BE TAKEN OVER TO REHAB UNIT IN STABLE MEDICAL CONDITION. Inpatient Rehab Admission - Rehab Decision to Admit Inpatient rehab admission?: Yes - Initial Determination Are CD services needed?: Yes Free of communicable disease: Yes Not in need of hospitalization: Yes - Rehab Admission Criteria Previous failed treatment: Yes Poor recovery environment: No Comorbidities: Yes Lacks judgement: No Patient is meeting Inpatient Rehab admission criteria:: Yes
[2019-07-16] MEDS: TOLNAFTATE 1% TP SCH (17:48)
[2019-07-16] MEDS ORDERED: THIAMINE HCL 100 MG TABLET (FP) PO SCH (22:00)
[2019-07-16] MEDS ORDERED: MELATONIN 5 MG TABLETS PO PRN (22:00)
[2019-07-17 06:52] VITALS: BP 140/81; PULSE 79; TEMP 97.4
[2019-07-17] MEDS ORDERED: PRENATAL VITAMINS W/ FOLIC ACID TABLET (FP) PO SCH (10:00)
[2019-07-17] MEDS ORDERED: FLUoxetine HCL 20 MG CAPSULE (FP) PO SCH (10:00)
[2019-07-17] MEDS: TOLNAFTATE 1% TP SCH (10:20)
--- NOTE | 2019-07-17 10:30 | DS ---
[facility] Rehab Discharge Summary - [facility] Rehab Discharge Summary Admission Date: 07/16/19 Discharge Date: 07/17/19 - History Present History: Alcohol dependence Additional Comments: Pt is a 54 y/o male who completed detox yesterday on and admitted to rehab same day. Pt comes to staff this morning and requests early discharge stating " I have things to do out there. winter's coming a little faster and I have to take care of things instead of sitting in here. You guys can't help me here with housing, that's what I need now. I have been to too many 28 day rehabs and if i don't want to drink, I will not drink". Pt was spoken to with Director, Melinda Hutchins and seen by his counselor Jean Kingsley for aftercare referral. Pt has been referred to [facility] for CD aftercare and housing needs, respectively. Pertinent Past History: Hx Depression - Discharge Physical Exam Vital Signs: Vital Signs Temperature 97.4 F L 07/17/19 06:51 Pulse Rate 79 07/17/19 06:51 Respiratory Rate 18 07/17/19 06:51 Blood Pressure 140/81 07/17/19 06:51 O2 Sat by Pulse Oximetry (%) Alert o x 3. Denies s/h/i nad oob ambulating with steady gait. cardiac;s1 s2,rrr lungs;cta,freda. abdomen:protruded,+bs,nt,nd extremities/skin:no edema,full ROM,skin intact. Pertinent Admission Physical Exam Findings: Unremarkable/Status medically stable and unchanged from admission. - Treatment Discharge Condition: Discharge condition good Hospital Course: Rehab stay was safe. - Medication Discharge Medications: Ambulatory Orders Buspirone HCl [Buspar -] 15 mg PO BID #60 tablet 07/17/19 Fluoxetine HCl [Prozac -] 20 mg PO DAILY #30 capsule 07/17/19 - Medication-Assisted Treatment (MAT) Medication-Assisted Treatment (MAT): No - Discharge Instructions Diet, activity, other medical instructions: Diet:Regular Activity: oob ad dima Other medical instructions:Follow up with primary care doctor, Dr. Priyanka Javier for medical/psych management within 1-2 weeks after discharge and as needed. Follow up wit CD aftercare at [facility] and [facility] for Housing needs. - Diagnosis (1) Alcohol dependence Status: Chronic (2) History of depression Status: Chronic (3) Nicotine dependence Status: Chronic - Follow-up Referral Minutes to complete discharge: 20 - AMA Did Patient Leave Against Medical Advice: No
--- NOTE | 2019-07-17 11:27 | PN ---
[facility] Progress Note Note: Psychiatric nurse practitioner note: Patient leaving rehab today as he plans to find housing. A 30 day prescription of Prozac 20mg + Buspar 15mg BID was electronically sent to [facility] at [address] [place] [address].
== END 2019-07-17 11:25 | disposition home or self-care (01) | DRG 772 ==
LOC: YASAS 12:41 → Y5N 12:42
PROVIDERS: ADMIT Neuromusculoskeletal Medicine & OMM; ATTEND Neuromusculoskeletal Medicine & OMM
PROC: HZ42ZZZ Group Counseling for Substance Abuse Treatment, Cognitive-Behavioral (ICD-10-PCS; principal; 2019-07-16)
DX: F10.20 Alcohol dependence, uncomplicated (principal); F17.210 Nicotine dependence, cigarettes, uncomplicated; F32.9 Major depressive disorder, single episode, unspecified; Z91.013 Allergy to seafood; Z59.0 Homelessness